=== PATIENT | male | born 1955 | race Caucasian/White ===

== ENCOUNTER 2023-02-03 11:20 | Inpatient (IN) | payer MEDICARE ==
[~2023-02-03] VITALS: Ht 172.7 cm; Wt 75.1 kg
[2023-02-03] MEDS ORDERED: MED REC IN PROGRESS XX SCH (12:45)
[2023-02-03 13:20] LABS: HEMATOCRIT 44.3 % (42.0-52.0); HEMOGLOBIN 14.2 g/dl (13.5-17.5); MEAN CORPUSCULAR HEMOGLOBIN 30.7 pg (27.0-33.0); MEAN CORPUSCULAR HGB CONC 32.1 g/dl (32.0-36.5); MEAN CORPUSCULAR VOLUME 95.9 fl (80.0-96.0); PLATELET COUNT, AUTOMATED 194 10^3/uL (150-450); RED BLOOD COUNT 4.62 10^6/uL (4.30-6.10); WHITE BLOOD COUNT 6.4 10^3/uL (4.0-10.0)
[2023-02-03 13:34] LABS: ETHYL ALCOHOL (ETHANOL) < 0.003 % (0.000-0.010)
[2023-02-03 13:35] LABS: SALICYLATE LEVEL < 3.0 MG/DL (<30)
[2023-02-03 13:36] LABS: ALBUMIN 3.5 G/DL (3.2-5.2); ALKALINE PHOSPHATASE 88 U/L (46-116); ALT/SGPT 13 U/L (7.0-40); AST/SGOT 14 U/L (<34); BILIRUBIN,DIRECT 0.2 MG/DL (<0.4); BILIRUBIN,TOTAL 0.5 MG/DL (0.3-1.2); BLOOD UREA NITROGEN 8 MG/DL (9-23); CARBON DIOXIDE LEVEL 29 MMOL/L (20-31); CHLORIDE LEVEL 108 MMOL/L (98-107); GLOMERULAR FILTRATION RATE > 60.0 (>49); GLUCOSE, FASTING 92 MG/DL (74-106); POTASSIUM SERUM 4.1 MMOL/L (3.5-5.1); SODIUM LEVEL 143 MMOL/L (136-145); TOTAL PROTEIN 6.7 G/DL (5.7-8.2)
[2023-02-03 13:37] LABS: THYROID STIMULATING HORMONE 2.036 uIU/ML (0.55-4.78)
[2023-02-03 15:37] LABS: AMPHETAMINES LEVEL URINE NEGATIVE (NEGATIVE); BARBITURATES URINE NEGATIVE (NEGATIVE); BENZODIAZEPINES URINE NEGATIVE (NEGATIVE); METHADONE URINE NEGATIVE (NEGATIVE)
[2023-02-03 15:38] LABS: CANNABINOIDS URINE POSITIVE (NEGATIVE); COCAINE METABOLITE URINE POSITIVE (NEGATIVE); OPIATES URINE NEGATIVE (NEGATIVE); PHENCYCLIDINE URINE NEGATIVE (NEGATIVE)
[2023-02-03] MEDS ORDERED: MAALOX 30 ML SUSP *UDC PO PRN (17:55)
[2023-02-03] MEDS ORDERED: MOM 30ML SUSPENSION UDC PO PRN (17:55)
[2023-02-03] MEDS ORDERED: XALA0.007 OU (19:38)
[2023-02-03] MEDS ORDERED: BRIN8DRO OU (19:38)
[2023-02-03] MEDS ORDERED: ROPI5TAB19 PO (19:38)
[2023-02-03] MEDS ORDERED: DULO1CAP5 PO (19:38)
[2023-02-03] MEDS ORDERED: ATOR1TAB19 PO (19:38)
[2023-02-03] MEDS ORDERED: MIRT-11 PO (19:38)
[2023-02-03] MEDS ORDERED: OLAN1TAB20 PO (19:38)
[2023-02-03] MEDS ORDERED: TIMO0.5S20 OU (19:38)
[2023-02-03] MEDS ORDERED: HOME MED LIST COMPLETE! XX SCH (19:40)
[2023-02-03 21:53] VITALS: BP 130/62; TEMP 98.2; O2SAT 95
[2023-02-04] MEDS: NICOTINE 21MG/24HR 1 EA TRANSDERMAL TD SCH (10:41)
[2023-02-04] MEDS ORDERED: ALBUTEROL 90 MCG/ACT 8GM HFA INHALER INH PRN (15:55)
[2023-02-04 16:17] VITALS: BP 138/63; TEMP 98.7; O2SAT 100
[2023-02-04] MEDS: traZODone 50 MG TAB PO PRN (20:47)
[2023-02-04] MEDS: ATORVASTATIN 10 MG TAB PO SCH (20:48)
[2023-02-04] MEDS: LATANOPROST 0.005% OPHTH SOLN 2.5 ML OU SCH (20:48)
[2023-02-04] MEDS: rOPINIRole 0.25 MG TAB(REQUIP) PO SCH (20:49)
[2023-02-05 07:03] VITALS: BP 136/65; TEMP 98.2; O2SAT 98
[2023-02-05] MEDS: NICOTINE 21MG/24HR 1 EA TRANSDERMAL TD SCH (08:48)
[2023-02-05] MEDS: TIMOLOL MALEATE 0.5% OPHTH SOLN 5 ML OU SCH (08:48)
[2023-02-05] MEDS: ACETAMINOPHEN TAB 650MG DOSE (2X325MG) PO PRN ×2 (15:27→20:42)
[2023-02-05 16:15] VITALS: BP 130/62; TEMP 98.7; O2SAT 99
[2023-02-05] MEDS: ATORVASTATIN 10 MG TAB PO SCH (20:07)
[2023-02-05] MEDS: traZODone 50 MG TAB PO PRN (20:07)
[2023-02-05] MEDS: LATANOPROST 0.005% OPHTH SOLN 2.5 ML OU SCH (20:07)
[2023-02-05] MEDS: rOPINIRole 0.25 MG TAB(REQUIP) PO SCH (20:07)
[2023-02-06 06:38] VITALS: BP 144/68; TEMP 97.5; O2SAT 98
[2023-02-06] MEDS: NICOTINE 21MG/24HR 1 EA TRANSDERMAL TD SCH (08:40)
[2023-02-06] MEDS: TIMOLOL MALEATE 0.5% OPHTH SOLN 5 ML OU SCH (08:41)
[2023-02-06] MEDS ORDERED: ESCITALOPRAM OXALATE 5MG TABLET (LEXAPRO) PO SCH (09:00)
[2023-02-06] MEDS: IBUPROFEN 400MG TAB PO PRN ×3 (09:38→22:41)
[2023-02-06] MEDS ORDERED: traZODone 100 MG TAB PO PRN (17:10)
[2023-02-06 19:16] VITALS: BP 154/76; TEMP 97.6; O2SAT 100
[2023-02-06] MEDS: DULoxetine 30MG CAPSULE (CYMBALTA) PO SCH (20:16)
[2023-02-06] MEDS: rOPINIRole 0.25 MG TAB(REQUIP) PO SCH (20:16)
[2023-02-06] MEDS: ATORVASTATIN 10 MG TAB PO SCH (20:16)
[2023-02-06] MEDS: ACETAMINOPHEN TAB 650MG DOSE (2X325MG) PO PRN (20:18)
[2023-02-06] MEDS: LATANOPROST 0.005% OPHTH SOLN 2.5 ML OU SCH (20:18)
[2023-02-07] MEDS: diphenhydrAMINE 25MG CAP PO PRN (00:09)
[2023-02-07 06:25] VITALS: BP 142/78; TEMP 98; O2SAT 96
[2023-02-07] MEDS: TIMOLOL MALEATE 0.5% OPHTH SOLN 5 ML OU SCH (08:06)
[2023-02-07] MEDS: NICOTINE 21MG/24HR 1 EA TRANSDERMAL TD SCH (08:06)
[2023-02-07 17:38] VITALS: BP 121/66; TEMP 97.3; O2SAT 98
[2023-02-07 19:03] VITALS: BP 137/76; O2SAT 99
[2023-02-07] MEDS: LATANOPROST 0.005% OPHTH SOLN 2.5 ML OU SCH (20:14)
[2023-02-07] MEDS: ATORVASTATIN 10 MG TAB PO SCH (20:14)
[2023-02-07] MEDS: DULoxetine 30MG CAPSULE (CYMBALTA) PO SCH (20:14)
[2023-02-07] MEDS: rOPINIRole 0.25 MG TAB(REQUIP) PO SCH (20:15)
[2023-02-07] MEDS: IBUPROFEN 400MG TAB PO PRN (20:15)
[2023-02-07] MEDS ORDERED: QUEtiapine FUMARATE 12.5 MG HALF-TAB PO SCH (21:00)
[2023-02-08] MEDS: diphenhydrAMINE 25MG CAP PO PRN ×2 (00:36→23:02)
[2023-02-08 06:14] VITALS: BP 127/64; TEMP 98.1; O2SAT 97
[2023-02-08] MEDS: NICOTINE 21MG/24HR 1 EA TRANSDERMAL TD SCH (08:14)
[2023-02-08] MEDS: TIMOLOL MALEATE 0.5% OPHTH SOLN 5 ML OU SCH (08:15)
[2023-02-08 18:42] VITALS: BP 140/80; TEMP 97.9; O2SAT 99
[2023-02-08] MEDS: DULoxetine 30MG CAPSULE (CYMBALTA) PO SCH (20:08)
[2023-02-08] MEDS: rOPINIRole 0.25 MG TAB(REQUIP) PO SCH (20:08)
[2023-02-08] MEDS: ATORVASTATIN 10 MG TAB PO SCH (20:08)
[2023-02-08] MEDS: LATANOPROST 0.005% OPHTH SOLN 2.5 ML OU SCH (20:08)
[2023-02-08] MEDS: IBUPROFEN 400MG TAB PO PRN (20:09)
[2023-02-08] MEDS ORDERED: QUEtiapine FUMARATE 25 MG TAB PO SCH (21:00)
[2023-02-09 06:42] VITALS: BP 136/76; TEMP 97.8; O2SAT 100
[2023-02-09] MEDS: NICOTINE 21MG/24HR 1 EA TRANSDERMAL TD SCH (08:05)
[2023-02-09] MEDS: TIMOLOL MALEATE 0.5% OPHTH SOLN 5 ML OU SCH (08:05)
[2023-02-09] MEDS ORDERED: QUET1TAB17 PO (09:29)
[2023-02-09] MEDS ORDERED: CYMB1CAP5 PO (09:29)
== END 2023-02-09 13:00 | disposition home or self-care (01) | DRG 885 ==
LOC: M ED 11:20 → M ED INP 17:51 → M PSY 21:39
PROVIDERS: ADMIT Student in an Organized Health Care Education/Training Program; ATTEND Psychiatry & Neurology Psychiatry
DX: F33.9 Major depressive disorder, recurrent, unspecified (principal); R45.851 Suicidal ideations; F14.20 Cocaine dependence, uncomplicated; F12.10 Cannabis abuse, uncomplicated; E78.5 Hyperlipidemia, unspecified; G25.81 Restless legs syndrome; F15.10 Other stimulant abuse, uncomplicated; Z91.51 Personal history of suicidal behavior; F17.210 Nicotine dependence, cigarettes, uncomplicated; Z79.899 Other long term (current) drug therapy; Z63.5 Disruption of family by separation and divorce